=== PATIENT | female | born 1990 | race Caucasian/White ===

== ENCOUNTER 2017-01-24 09:14 | Emergency (ER) | payer BC, MEDICAID ==
[~2017-01-24] VITALS: Ht 165.1 cm; Wt 92.6 kg
[~2017-01-24 09:14] MED LIST: CALC-649 PO; FERR27TA PO; PREN1TAB49 PO
[2017-01-24 09:20] VITALS: Ht 165.1 cm; Wt 92.6 kg
[2017-01-24 10:49] LABS: URINE BLOOD (Dip) POC 3+ (NEGATIVE)
[2017-01-24] MEDS ORDERED: KETOROLAC 30 MG INJ IM STA (10:54)
[2017-01-24 11:40] LABS: BASOPHIL # 0.1 10^3/ul (0.0-0.1); BASOPHILS % 0.4 % (0.0-2.0); EOSINOPHILS # 0.1 10^3/ul (0.0-0.5); EOSINOPHILS % 1.1 % (0.0-7.0); HEMATOCRIT 34.9 % (37.0-47.0); HEMOGLOBIN 10.7 g/dl (12.0-16.0); LYMPHOCYTES % 17.1 % (15.0-51.0); MEAN CORPUSCULAR HEMOGLOBIN 21.2 pg (29.0-33.0); MEAN CORPUSCULAR HGB CONC 30.7 g/dl (32.0-37.0); MEAN CORPUSCULAR VOLUME 69.1 fl (82.0-101.0); MEAN PLATELET VOLUME 9.7 fl (7.4-10.4); MONOCYTE # 0.6 10^3/ul (0.3-0.9); MONOCYTES % 5.2 % (0.0-11.0); NEUTROPHIL # 8.7 10^3/ul (1.6-7.5); NEUTROPHILS % 75.9 % (39.0-77.0); PLATELET COUNT 449 10^3/UL (140-415); RED BLOOD COUNT 5.05 10^6/ul (4.20-5.40); RED CELL DISTRIBUTION WIDTH 15.8 % (11.5-14.5); WHITE BLOOD COUNT 11.4 10^3/ul (4.8-10.8)
--- NOTE | 2017-01-24 12:32 | RADRPT ---
PROCEDURE: US Pelvis. CLINICAL INDICATION: Pelvic pain TECHNIQUE: Transabdominal and transvaginal pelvic ultrasound are performed. COMPARISON: None. FINDINGS: The uterus is normal in echogenicity and anteverted in orientation. The uterus measures 8.5 x 5.3 x 5.5 cm. No focal fibroids are identified. A secretory endometrium is identified measuring 1.3 cm. The cervix is normal in appearance. There are multiple Nabothian cysts. Both ovaries are identified, and normal in size, shape, and appearance. No solid adnexal masses are identified.. Normal Doppler flow is noted of both ovaries. The right ovary measures 3.1 x 1.7 x 2.4 cm, and the left ovary measures 2.8 x 1.4 x 2.1 cm There is no free fluid in the pelvis IMPRESSION: Unremarkable pelvic ultrasound. Normal color flow to both ovaries RPTAT: HH .Maico García MD, Date Time Electronically viewed and signed by .Maico García MD, on 01/24/2017 12:31 .W/
[2017-01-24 12:46] LABS: CALCIUM 8.7 mg/dl (8.4-10.2); CREATININE 0.51 mg/dl (0.44-1.00); POTASSIUM 3.9 mmol/L (3.5-5.1)
[2017-01-24] MEDS ORDERED: NITR-58 PO (14:02)
[2017-01-24] MEDS ORDERED: DOCU-144 PO (14:04)
[2017-01-24] MEDS ORDERED: FER325 PO (14:04)
--- NOTE | 2017-01-24 19:07 | ERD ---
ER Documentation Chief Complaint Chief Complaint Complains of vag bleed since yesterday HPI Patient is a 26-year-old female who presents ED for concerns of vaginal bleeding since yesterday. Patient states she does have a history of irregular heavy menstrual periods. Patient does report using approximately 3-4 pads per day. Patient states she occasionally pass blood clots. Patient denies any hormonal use. Patient states that she has bilateral pelvic pain which started yesterday. Patient denies any nausea, vomiting, fever, chills, chest pain, shortness or breath lightheadedness or dizziness. Patient states she has seen her [facility] in regards to her history of irregular menstrual periods and states that she has a pelvic ultrasound pending. Patient states she has discussed possibly needing an endometrial biopsy with her OBGYN. ROS All systems reviewed and are negative except as per history of present illness. Medications Home Meds Active Scripts Docusate Sodium* (Colace*) 100 Mg Capsule, 100 MG PO BID, #30 CAP Prov:SISI NUR PA-C 01/24/17 Ferrous Sulfate* (Ferrous Sulfate*) 325 Mg Tabec, 325 MG PO BID, #60 TAB Prov:SISI NUR PA-C 01/24/17 Nitrofurantoin Monohyd Macrocr* (Macrobid*) 100 Mg Capsr, 100 MG PO BID for 5 Days, CAP Prov:SISI NUR PA-C 01/24/17 Reported Medications Calcium Carbonate (Calcium) 1 Tab Tablet, 1 TAB PO DAILY 12/30/10 Ferrous Sulfate (Iron) 1 Tab Tablet, 1 TAB PO DAILY 12/30/10 Vits W-Ca,Fe,Fa(<1MG) () 1 Tab Tablet, 1 TAB PO DAILY 12/30/10 Allergies Allergies: Coded Allergies: No Known Allergies (Verified Allergy, Unknown, 01/24/17) PMhx/Soc Medical and Surgical Hx: pt denies Medical Hx, pt denies Surgical Hx History of Surgery: No Anesthesia Reaction: No Hx Neurological Disorder: No Hx Respiratory Disorders: No Hx Cardiac Disorders: No Hx Psychiatric Problems: No Hx Miscellaneous Medical Probl: No Hx Alcohol Use: No Hx Substance Use: No Hx Tobacco Use: No Smoking Status: Never smoker Physical Exam Vitals Vital Signs Date Time Temp Pulse Resp B/P Pulse Ox O2 Delivery O2 Flow Rate FiO2 01/24/17 09:20 98.4 83 20 133/82 98 Physical Exam GENERAL: Well-developed, well-nourished female. Appears in no acute distress. HEAD: Normocephalic, atraumatic. EYES: Pupils are equally reactive bilaterally. EOMs grossly intact. No conjunctival erythema. ENT: Moist mucous membranes. No uvula deviation. No kissing tonsils. NECK: Supple. No meningismus. Normal range of motion of the neck. LUNG: Clear to auscultation bilaterally. No rhonchi, wheezing, rales or coarse breath sounds. HEART: Regular rate and rhythm. No murmurs, rubs or gallops. ABDOMEN: Soft, and nondistended. Tender to palpation of bilateral pelvic regions and suprapubic region. Positive bowel sounds in all four quadrants. No rebound tenderness, no guarding. (-) McBurney's point tenderness. No CVA tenderness. EXTREMITIES: Equal pulses bilaterally. No peripheral clubbing, cyanosis or edema. No unilateral leg swelling. NEUROLOGIC: Alert and oriented. Moving all four extremities without any difficulty. Normal speech. Steady gait. SKIN: Normal color. Warm and dry. No rashes or lesions. Result Diagram: 01/24/17 1110 01/24/17 1110 Results 24 hrs Laboratory Tests Test 01/24/17 10:50 01/24/17 11:10 Bedside Urine pH (LAB) 6.5 Bedside Urine Protein (LAB) 3+ Bedside Urine Glucose (UA) Negative Bedside Urine Ketones (LAB) 1+ Bedside Urine Blood 3+ Bedside Urine Nitrite (LAB) Negative Bedside Urine Leukocyte Esterase (L 3+ White Blood Count 11.410^3/ul Red Blood Count 5.0510^6/ul Hemoglobin 10.7g/dl Hematocrit 34.9% Mean Corpuscular Volume 69.1fl Mean Corpuscular Hemoglobin 21.2pg Mean Corpuscular Hemoglobin Concent 30.7g/dl Red Cell Distribution Width 15.8% Platelet Count 09008^3/UL Mean Platelet Volume 9.7fl Neutrophils % 75.9% Lymphocytes % 17.1% Monocytes % 5.2% Eosinophils % 1.1% Basophils % 0.4% Nucleated Red Blood Cells % 0.0/100WBC Neutrophils # 8.710^3/ul Lymphocytes # 2.010^3/ul Monocytes # 0.610^3/ul Eosinophils # 0.110^3/ul Basophils # 0.110^3/ul Nucleated Red Blood Cells # 0.010^3/ul Sodium Level 132mmol/L Potassium Level 3.9mmol/L Chloride Level 105mmol/L Carbon Dioxide Level 19mmol/L Anion Gap 12 Blood Urea Nitrogen 6mg/dl Creatinine 0.51mg/dl Glucose Level 81mg/dl Calcium Level 8.7mg/dl Serum HCG, Qualitative NEGATIVE Current Medications Medications (Trade) Dose Ordered Sig/Ángel Route PRN Reason Start Time Stop Time Status Last Admin Dose Admin Ketorolac Tromethamine (Toradol) 30 mg ONCE STAT IM 01/24/17 10:54 01/24/17 10:56 DC 01/24/17 11:00 Procedures/MDM ED COURSE: The patient was stable throughout ED course. I kept the patient and/or family informed of laboratory and diagnostic imaging results throughout the ED course. DIAGNOSTIC IMAGING: Read by radiologist. DIAGNOSTIC IMAGING REPORT Patient: SYDNI HERNÁNDEZ : 1990 Age: 26 Sex: F MR #: [id number] DOS: 01/24/17 0000 Ordering MD: SISI NUR PA-C Location: [facility] Room/Bed: PROCEDURE: US Pelvis. CLINICAL INDICATION: Pelvic pain TECHNIQUE: Transabdominal and transvaginal pelvic ultrasound are performed. COMPARISON: None. FINDINGS: The uterus is normal in echogenicity and anteverted in orientation. The uterus measures 8.5 x 5.3 x 5.5 cm. No focal fibroids are identified. A secretory endometrium is identified measuring 1.3 cm. The cervix is normal in appearance. There are multiple Nabothian cysts. Both ovaries are identified, and normal in size, shape, and appearance. No solid adnexal masses are identified.. Normal Doppler flow is noted of both ovaries. The right ovary measures 3.1 x 1.7 x 2.4 cm, and the left ovary measures 2.8 x 1.4 x 2.1 cm There is no free fluid in the pelvis IMPRESSION: Unremarkable pelvic ultrasound. Normal color flow to both ovaries RPTAT: HH .Maico Raquel, MD, Date Time Electronically viewed and signed by .Maico García MD, MD on 01/24/2017 12:31 .W/ CC: SISI NUR PA-C PROCEDURES: None. MEDICATIONS GIVEN: [None.] Patient tolerated medication well with no adverse reactions. Patient reported improvement in pain. MEDICAL DECISION MAKING: This is a 26-year-old female presents with vaginal bleeding which started yesterday. Patient states that she has had pelvic pain for the last day as well. Patient does admit to a history of irregular periods. Patient denies any nausea, vomiting, fevers or chills. Patient has been following her [facility] [employer] for her ongoing irregular periods. Vital signs were reviewed. Patient was afebrile. Patient was hemodynamically stable. Urine test was negative. CBC showed WBC count of 11.4. Hemoglobin was 10.7. Hematocrit of 34.9. There is no indication for emergent blood transfusion at this time. Platelet count of 449. Patient had no significant electrolyte abnormalities, renal failure, liver failure. UA did show findings of 3+ leukocyte esterase. Urine was negative. At this time, the patient's presentation is most consistent with dysfunctional uterine bleeding and UTI. Low suspicion for ectopic , threatened , spontaneous , ovarian torsion, polycystic ovarian syndrome, fibroids, pyelonephritis, bowel perforation, or bowel obstruction. Patient was hemodynamically stable. PRESCRIPTIONS: Iron supplements, Colace, Macrobid DISCHARGE: At this time, patient is stable for discharge and outpatient management. Patient was given a copy of all imaging studies and blood work obtained today. Patient is advised to follow-up with her [facility] [employer] [facility] on an outpatient basis including possible endometrial biopsy as discussed. I have instructed the patient to follow-up with his/her primary care physician in 1-2 days. I have instructed the patient to promptly return to the ER for any new or worsening symptoms including increased pain, swelling, redness, warmth or fever. The patient and/or family expressed understanding of and agreement with this plan. All questions were answered. Home care instructions were provided. Disclaimer: Inadvertent spelling and grammatical errors are likely due to EHR/ dictation software use and do not reflect on the overall quality of patient care. Also, please note that the electronic time recorded on this note does not necessarily reflect the actual time of the patient encounter. Departure Diagnosis: Primary Impression: Dysfunctional uterine bleeding Additional Impression: UTI (urinary tract infection) Urinary tract infection type: site unspecified Hematuria presence: with hematuria Qualified Code: N39.0 - Urinary tract infection with hematuria, site unspecified Condition: Stable Patient Instructions: Understanding Urinary Tract Infections (UTIs), Dysfunctional Uterine Bleeding Additional Instructions: Call your primary care doctor/ OBGYN TOMORROW for an appointment during the next 1-2 days.See the doctor sooner or return here if your condition worsens before your appointment time. Follow-up with your [facility] [facility] for an endometrial biopsy. SISI NUR PA-C Jan 24, 2017 19:07
== END 2017-01-24 14:14 | disposition home or self-care (01) ==
LOC: FTE 09:14
DX: N93.8 Other specified abnormal uterine and vaginal bleeding (principal); N39.0 Urinary tract infection, site not specified; R10.2 Pelvic and perineal pain
CPT/HCPCS: 36415; 76830; 76856; 80048; 81003; 84703; 85025; 96372; J1885; Z7502